=== PATIENT | female | born 1965 | race Caucasian/White ===

== ENCOUNTER 2018-04-28 08:50 | Outpatient (CLI) | payer OTHER ==
--- NOTE | 2018-04-28 09:21 | RAD ---
RADIOGRAPH CHEST 2 VIEWS: HISTORY: 53-year-old female with dyspnea. FINDINGS: The lungs are clear. The cardiomediastinal silhouette and hilar shadows are normal. There is no ple ural effusion. The osseous structures appear normal. There is no pneumothorax. IMPRESSION: Normal. jn POS: [facility]
== END 2018-04-28 08:51 | disposition home or self-care (01) ==
LOC: RAD 08:50
PROVIDERS: ATTEND Internal Medicine Critical Care Medicine
DX: R06.00 Dyspnea, unspecified (principal)
CPT/HCPCS: 71046